=== PATIENT | female | born 1940 | race African-American/Black ===

== ENCOUNTER 2017-10-04 12:54 | Inpatient (IN) | payer MEDICARE, OTHER ==
[~2017-10-04] VITALS: Ht 157.5 cm; Wt 47.2 kg
--- OUTSIDE RECORDS SUMMARY | 2017-10-04 12:57 | XMS REPORT | Clinical Summary ---
Author Author [facility] Organization [facility] Address Unknown Phone Unavailable Care Team Providers Care Silk Washing Machine Operator Name Role Phone Kimo Ga MD PCP Allergies Active Allergy Reactions Severity Noted Date Comments No Known Drug Allergies Other (See Comments) 05/31/2015 Current Medications Prescription Sig. Disp. Refills Start End Date Status Date acetaminophen (TYLENOL) Take 500 mg by mouth Active 500 MG tablet every 6 (six) hours as needed for mild pain. diclofenac (VOLTAREN) 1 % Apply topically 4 (four) Active gel times a day. aspirin 325 MG tablet Take 325 mg by mouth Active daily. Dr. Daly rec 325 mg for CVA early 02/2013. nystatin (MYCOSTATIN) Apply topically 2 (two) 30 g 0 07/05/19 Active 100,000 unit/gram times a day. 18 19 ointmentIndications: 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 behavioral disturbance lisinopril-hydrochlorothi Take 1 tablet by mouth 90 tablet 3 07/05/19 07/05/19 Active azide daily. 18 19 (PRINZIDE,ZESTORETIC) 10-12.5 mg per tabletIndications: Hypertension simvastatin (ZOCOR) 20 MG Take 1 tablet (20 mg 90 tablet 1 03/22/20 07/05/19 Discontin tabletIndications: total) by mouth nightly. 16 18 ued Hyperlipidemia, unspecified hyperlipidemia type LISINOPRIL-HCTZ 10-12.5 Take 1 tablet by mouth 05/03/19 Discontin MG COMBO DOSE daily. Patient has been 18 ued taking one po daily for a period of time lisinopril-hydrochlorothi 10/30/19 11/11/19 Discontin azide 17 17 ued (PRINZIDE,ZESTORETIC) 10-12.5 mg per tablet lisinopril-hydrochlorothi Take 1 tablet by mouth 90 tablet 3 11/11/19 12/30/19 Discontin azide daily. 17 17 ued (PRINZIDE,ZESTORETIC) 10-12.5 mg per tabletIndications: Essential hypertension lisinopril-hydrochlorothi Take 1 tablet by mouth 90 tablet 3 03/15/20 07/05/19 Discontin azide daily Indications: 17 18 ued (PRINZIDE,ZESTORETIC) Hypertension. 10-12.5 mg per tabletIndications: Hypertension Active Problems Problem Noted Date Rapid weight loss 09/21/2017 Medicare annual wellness visit, subsequent 03/16/2017 Last Assessment & Plan: 76 y.o. female who was seen today for Medicare Wellness visit with complaints of worsening weight loss. Depression screening: Negative. No Follow-up needed. Fall risk screening:: No action taken. and unable to assess ADL's: independent for UE/LE dressing, toileting, brush teeth, and washface with no assistive devices. , wheelchair bound Tobacco use screening and follow up: reports that she has never smoked. She has never used smokeless tobacco. Not counseled. BMI Follow-Up/Intervention: Discussed the patient's BMI with her. Body mass index is 13.66 kg/m . The BMI follow up plan was under the ideal body weight Need for pneumococcal vaccine 10/16/2015 Osteoporosis 09/19/2015 Overview: 09/19/2015 bone density: Neck mean T -3.0, total mean T -2.4, L1-L4 T -2.4. Placed on alendronate, but stopped after a few months. Start alendronate 70 mg weekly; repeat bone density in one year. History of compression fracture of lumbar spine CKD (chronic kidney disease) stage 3, GFR 30-59 ml/min 05/31/2015 Hypertension 05/31/2015 Last Assessment & Plan: Controlled. Continue current regimen. Alzheimer's dementia Overview: diagnosed in 05/31/2014-Dr. Daly Last Assessment & Plan: Worsening dementia symptoms, including dysphagia. Will r/out anemia, infection or thyroid disorder Discussed benefits of transferring care to a home hospice care setting; referred for family to discuss admission Resolved Problems Problem Noted Date Resolved Date Contracture, right hand 07/04/2017 09/22/2017 Last Assessment & Plan: Physical therapy referral. Monitor progress, rtc 1 month for follow up Medicare annual wellness visit, subsequent 03/15/2017 03/16/2017 Encounter for other administrative examinations 12/29/2016 03/16/2017 Last Assessment & Plan: Pt's symptoms reported stable. Has adequate appetite, urinary output. No recent s/s of agitation or behavioral disturbances. Ok to assist adult daycare services. Home health services on order -follow up in clinic in 3 months. Abnormal thyroid function test 11/17/2015 03/15/2017 Weight gain 10/16/2015 03/15/2017 Need for shingles vaccine 10/16/2015 03/15/2017 Hypokalemia 10/01/2015 03/15/2017 Overview: Noted in ER on 10/01/2015 Vitamin D deficiency 07/29/2015 03/15/2017 Cerebrovascular accident 06/11/2015 03/15/2017 Overview: CVA/TIA late late Jan 2013; 02/26/2013 without residual; 02/26/2013 CT showed possible lacunar infarct at right basal ganglia. MRI - brain 02/27/2013 showed acute infarct right frontal coronal radiate/basal ganglia Arthritis of knee 06/11/2015 03/15/2017 Overview: Left knee Compression fracture of lumbar vertebra 05/31/2015 03/15/2017 Depression 05/31/2015 03/15/2017 HLD (hyperlipidemia) 05/31/2015 09/22/2017 Hyperthyroidism 05/31/2015 03/15/2017 Osteoarthritis of knee 05/31/2015 03/15/2017 Overview: Left knee pain Abnormal finding on thyroid function test 05/31/2015 03/15/2017 Urinary incontinence 05/31/2015 03/15/2017 Need for Tdap vaccination 03/15/2017 Encounters Date Type Specialty Care Team Description 09/21/2017 Office Visit Kimo Schwarz MD Medicare annual wellness visit, subsequent (Primary Dx); 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 behavioral disturbance; Rapid weight loss; CKD (chronic kidney disease) stage 3, GFR 30-59 ml/min 07/04/2017 Office Visit Kimo Schwarz MD 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 behavioral disturbance (Primary Dx); Essential hypertension; Contracture, right hand 05/03/2017 Office Visit Neurology Lianna Daly MD 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 behavioral disturbance (Primary Dx) 05/03/2017 Orders Only Danna Altamirano MA Alzheimer's dementia with behavioral disturbance, unspecified timing of dementia onset (Primary Dx) 04/06/2017 Telephone Danna Altamirano MA 03/15/2017 Office Visit Kimo Schwarz MD Medicare annual wellness visit, subsequent (Primary Dx); Alzheimer's dementia without behavioral disturbance, unspecified timing of dementia onset; Essential hypertension; Need for pneumococcal vaccine; Osteoporosis, unspecified osteoporosis type, unspecified pathological fracture presence; CKD (chronic kidney disease) stage 3, GFR 30-59 ml/min 12/29/2016 Office Visit Kimo Schwarz MD Flu vaccine need (Primary Dx); Encounter for other administrative examinations 11/10/2016 Office Visit Kimo Schwarz MD Essential hypertension (Primary Dx); Hyperlipidemia, unspecified hyperlipidemia type; Hyperthyroidism; CKD (chronic kidney disease) stage 3, GFR 30-59 ml/min; Alzheimer's dementia without behavioral disturbance, unspecified timing of dementia onset after 10/03/2016 Immunizations Name Dates Previously Given Next Due FLUZONE HIGH-DOSE PF 12/29/2016, 03/22/2016, 01/07/2015 Influenza, Unspecified 04/25/2013 Pneumococcal Conjugate 12/10/2014 13-Valent Pneumococcal 03/15/2017 Polysaccharide Family History Medical History Relation Name Comments Heart disease Father Hypertension Father Stroke Maternal Aunt Alzheimer's disease Mother Breast cancer Mother Colon cancer Sister Relation Name Status Comments Father Maternal Aunt Mother Sister Social History Tobacco Use Types Packs/Day Years Used Date Never Smoker Smokeless Tobacco: Never Used Alcohol Use Drinks/Week oz/Week Comments No Sex Assigned at Date Recorded Not on file Last Filed Vital Signs Vital Sign Reading Time Taken Blood Pressure 152/85 09/21/2017 1:04 PM CDT Pulse 77 09/21/2017 1:04 PM CDT Temperature 36.9 C (98.4 F) 09/21/2017 1:04 PM CDT Respiratory Rate 20 05/03/2017 2:00 PM MENTAL HEALTH THERAPIST Oxygen Saturation 100% 09/21/2017 1:04 PM CDT Inhaled Oxygen - - Concentration Weight 36.1 kg (79 lb 9.6 oz) 09/21/2017 1:04 PM CDT Height 162.6 cm (5' 4") 09/21/2017 1:04 PM CDT Body Mass Index 13.66 09/21/2017 1:04 PM CDT Plan of Treatment Date Type Specialty Care Team Description 11/01/2017 Office Visit Neurology Lianna Daly MD [address] [place] [id number] [phone] Health Maintenance Due Date Last Done Comments BREAST CANCER SCREENING 1992 COLON CANCER SCREENING 1992 SHINGRIX VACCINE (#1) 1992 ZOSTER VACCINE 2002 INFLUENZA VACCINE 11/23/2017 12/29/2016, 12/29/2016, 03/22/2016, Additional history exists PNEUMOCOCCAL-13 Completed 12/10/2014, 12/10/2014 PNEUMOCOCCAL Completed 03/15/2017, 03/15/2017 POLYSACCHARIDE VACCINE AGE 65 AND OVER Results * CBC with platelet and differential (09/21/2017 1:53 PM) Component Value Ref Range WBC 5.1 3.8 - 10.8 Thousand/uL RBC 4.25 3.80 - 5.10 Million/uL HGB 12.6 11.7 - 15.5 g/dL HCT 38.5 35.0 - 45.0 % MCV 90.6 80.0 - 100.0 fL MCH 29.6 27.0 - 33.0 pg MCHC 32.7 32.0 - 36.0 g/dL RDW 13.2 11.0 - 15.0 % Platelet count 204 140 - 400 Thousand/uL MPV 11.9 7.5 - 12.5 fL Neutrophils, absolute 1,749 1,500 - 7,800 cells/uL Lymphocytes, absolute 2,621 850 - 3,900 cells/uL Monocytes, absolute 479 200 - 950 cells/uL Eosinophils, absolute 219 15 - 500 cells/uL Basophils, absolute 31 0 - 200 cells/uL Neutrophils 34.3 % Lymphocytes 51.4 % Monocytes 9.4 % Eosinophils 4.3 % Basophils + RC 0.6 % Specimen Performing Laboratory [facility] * Thyroid stimulating hormone (09/21/2017 1:53 PM) Only the most recent of 2 results within the time period is included. Component Value Ref Range TSH <0.01 (L) 0.40 - 4.50 mIU/L Specimen Performing Laboratory [facility] * T4, free (09/21/2017 1:53 PM) Only the most recent of 2 results within the time period is included. Component Value Ref Range T4, free 2.2 (H) 0.8 - 1.8 ng/dL Specimen Performing Laboratory [facility] * Hemoglobin A1c (09/21/2017 1:53 PM) Component Value Ref Range Hemoglobin A1C 4.8 <5.7 % of total Hgb Comment: For the purpose of screening for the presence of diabetes: <5.7% Consistent with the absence of diabetes 5.7-6.4% Consistent with increased risk for diabetes (prediabetes) > or=6.5% Consistent with diabetes This assay result is consistent with a decreased risk of diabetes. Currently, no consensus exists regarding use of hemoglobin A1c for diagnosis of diabetes in children. According to [place] Diabetes Association (ADA) guidelines, hemoglobin A1c <7.0% represents optimal control in non- diabetic patients. Different metrics may apply to specific patient populations. Standards of Medical Care in Diabetes(ADA). Specimen Performing Laboratory [facility] * Comprehensive metabolic panel (09/21/2017 1:53 PM) Component Value Ref Range Glucose 100 (H) 65 - 99 mg/dL Comment: Fasting reference interval For someone without known diabetes, a glucose value between 100 and 125 mg/dL is consistent with prediabetes and should be confirmed with a follow-up test. BUN, whole blood 22 7 - 25 mg/dL Creatinine 0.66 0.60 - 0.93 mg/dL Comment: For patients >49 years of age, the reference limit for Creatinine is approximately 13% higher for people identified as -[place]gr[place]. EGFR Non-Afr. [place] 87 > OR=60 mL/min/1.73m2 EGFR 101 > OR=60 mL/min/1.73m2 BUN/creatinine ratio NOT APPLICABLE 6 - 22 (calc) Sodium 146 135 - 146 mmol/L Potassium 4.0 3.5 - 5.3 mmol/L Chloride 104 98 - 110 mmol/L CO2 29 20 - 31 mmol/L Calcium 9.6 8.6 - 10.4 mg/dL Protein 6.5 6.1 - 8.1 g/dL Albumin, S 3.8 3.6 - 5.1 g/dL Globulin, total 2.7 1.9 - 3.7 g/dL (calc) Albumin/globulin ratio 1.4 1.0 - 2.5 (calc) Total bilirubin 0.3 0.2 - 1.2 mg/dL Alkaline phosphatase 70 33 - 130 U/L AST 13 10 - 35 U/L ALT 9 6 - 29 U/L Specimen Performing Laboratory [facility] * CBC hemogram (11/10/2016 3:47 PM) Component Value Ref Range WBC 6.1 3.8 - 10.8 Thousand/uL RBC 4.36 3.80 - 5.10 Million/uL HGB 13.6 11.7 - 15.5 g/dL HCT 40.2 35.0 - 45.0 % MCV 92.2 80.0 - 100.0 fL MCH 31.2 27.0 - 33.0 pg MCHC 33.8 32.0 - 36.0 g/dL RDW 12.2 11.0 - 15.0 % Platelet count 265 140 - 400 Thousand/uL MPV 10.7 7.5 - 12.5 fL Specimen Performing Laboratory [facility] * Phosphorus level (11/10/2016 3:47 PM) Component Value Ref Range Phosphorus 3.2 2.1 - 4.3 mg/dL Specimen Performing Laboratory [facility] * Parathyroid hormone (11/10/2016 3:47 PM) Component Value Ref Range PTH 47 14 - 64 pg/mL Comment: Interpretive Guide Intact PTH Calcium ------- Normal Parathyroid Normal Normal Hypoparathyroidism Low or Low Normal Low Hyperparathyroidism Primary Normal or High High Secondary High Normal or Low Tertiary High High Non-Parathyroid Hypercalcemia Low or Low Normal High Specimen Performing Laboratory [facility] * Magnesium level (11/10/2016 3:47 PM) Component Value Ref Range Magnesium 1.9 1.5 - 2.5 mg/dL Specimen Performing Laboratory [facility] * Basic metabolic panel (11/10/2016 3:47 PM) Component Value Ref Range Glucose 96 65 - 99 mg/dL Comment: Fasting reference interval BUN, whole blood 22 7 - 25 mg/dL Creatinine 1.13 (H) 0.60 - 0.93 mg/dL Comment: For patients >49 years of age, the reference limit for Creatinine is approximately 13% higher for people identified as -[place]gr[place]. EGFR Non-Afr. [place] 48 (L) > OR=60 mL/min/1.73m2 EGFR 55 (L) > OR=60 mL/min/1.73m2 BUN/creatinine ratio 19 6 - 22 (calc) Sodium 139 135 - 146 mmol/L Potassium 3.9 3.5 - 5.3 mmol/L Chloride 105 98 - 110 mmol/L CO2 27 20 - 31 mmol/L Calcium 10.2 8.6 - 10.4 mg/dL Specimen Performing Laboratory [facility] after 10/03/2016 Insurance Payer Benefit Subscriber ID Type Phone Address Plan / Group [employer] xxxxxxxxx [facility] Home: [id number] [facility] [place] [id number]
[2017-10-04] MEDS ORDERED: ONDANSETRON HCL INJ 2 MG/ML VIAL IM STA (13:45)
[2017-10-04] MEDS ORDERED: MORPHINE SULFATE 2 MG/ML SYR IV STA (13:45)
[2017-10-04] MEDS ORDERED: ONDANSETRON HCL 4 MG ORAL DISINTEGRATING TAB ONE (14:03)
--- NOTE | 2017-10-04 18:05 | Diagnostic Imaging Report ---
PROCEDURE:CT OF LT HIP WO CONTRAST COMPARISON:None. INDICATIONS:FALL, LEFT HIP PAIN FINDINGS:Spiral images of the left hip were performed from the iliac crests to the proximal femur in soft tissue and bone windows. Coronal and sagittal reformatted images were performed. Exam limited by patient leg contracture. Generalized osteopenia. Acute, transverse, minimally displaced fracture of the left femoral neck (difficult to assess whether subcapital or transcervical), best seen on series 501, image 42. A 7 mm bone fragment is noted in the medial aspect of the fracture (series 4, image 42). No other acute fractures. Femoral head remains aligned with the acetabulum. No hyperdensities to suggest acute hematoma. Visualized bowel is unremarkable. No significant soft tissue swelling. . CONCLUSION: 1. Acute, transverse, minimally displaced fracture of the left femoral neck (difficult to assess whether subcapital or transcervical). 2. Generalized osteopenia. Bean Foster M.D. Dictated by: Bean Foster M.D. on 10/04/2017 at 18:08 Electronically approved by: Bean Foster M.D. on 10/04/2017 at 18:08
[2017-10-04] MEDS ORDERED: MORPHINE SULFATE 2 MG/ML SYR IM ONE (18:45)
[2017-10-04] MEDS ORDERED: ACETAMINOPHEN 1000 MG/100 ML IV STA (19:12)
[2017-10-04 19:39] LABS: ANION GAP 11.8 mmol/L (8-16); BLOOD UREA NITROGEN 12 mg/dL (7-26); BUN/CREATININE RATIO 16 (6-25); CALCIUM 9.9 mg/dL (8.4-10.2); CARBON DIOXIDE 26 mmol/L (22-29); CHLORIDE 99 mmol/L (98-107); CREATININE, SERUM 0.74 mg/dL (0.57-1.11); EST GLOMERULAR FILTRATION RATE > 60 ML/MIN (60-); GLUCOSE 118 mg/dL (74-118); HEMATOCRIT 37.9 % (34.2-44.1); LYMPHOCYTES % 2.5 % (18.0-39.1); MEAN CORPUSCULAR HEMOGLOBIN 30.7 pg (28-32); MEAN CORPUSCULAR HGB CONC 34.3 g/dL (31-35); MEAN CORPUSCULAR VOLUME 89.6 fL (81-99); NEUTROPHILS % 5.8 % (38.7-80.0); PLATELET COUNT 171 x10e3/uL (140-360); POTASSIUM 3.8 mmol/L (3.5-5.1); RED BLOOD COUNT 4.23 x10e6/uL (3.6-5.1); RED CELL DISTRIBUTION WIDTH 12.7 % (11.7-14.4); SODIUM 133 mmol/L (136-145)
--- OUTSIDE RECORDS SUMMARY | 2017-10-04 19:39 | XMS REPORT | Clinical Summary ---
Author Author [facility] Organization [facility] Address Unknown Phone Unavailable Care Team Providers Care Radiator Cleaner Name Role Phone Kimo Ga MD PCP [...] CDT Respiratory Rate 20 05/03/2017 2:00 PM WAXER Oxygen Saturation 100% 09/21/2017 1:04 PM CDT Inhaled Oxygen - - Concentration Weight 36.1 kg (79 lb 9.6 oz) 09/21/2017 1:04 PM CDT Height 162.6 cm (5' 4") 09/21/2017 1:04 PM CDT Body Mass Index 13.66 09/21/2017 1:04 PM CDT Plan of Treatment Date Type Specialty Care Team Description 11/01/2017 Office Visit Neurology Lianna Daly MD [address] [place] [id number] [phone] Health Maintenance Due Date Last Done Comments [...] diagnosis of diabetes in children. According to [place] Diabetes Association (ADA) guidelines, hemoglobin A1c <7.0% [...] approximately 13% higher for people identified as -Austrian. EGFR Non-Afr. Austrian 87 > OR=60 mL/min/1.73m2 EGFR 101 > [...] approximately 13% higher for people identified as -Austrian. EGFR Non-Afr. Austrian 48 (L) > OR=60 mL/min/1.73m2 EGFR 55 [...] Address Plan / Group [employer] xxxxxxxxx [facility] Home: [address] [facility] [place] [address]
--- OUTSIDE RECORDS SUMMARY | 2017-10-04 19:39 | XMS REPORT ---
Author Author [facility] Address Unknown Phone Unavailable Care Team Providers Care Ground Nuclear Weapons Assembly Officer Name Role Phone ERICA LECHUGA Unavailable Unavailable Problems This patient has no known problems. Allergies, Adverse Reactions, Alerts This patient has no known allergies or adverse reactions. Medications This patient has no known medications. Results Test Description Test Time Test Comments Text Results Atomic Results Result Comments CT HIP LEFT WO 2017-10-04 18:08:00 [place] [address] Patient Name: DEVYN HARGROVE MR #: [id number] : 1940 Age/Sex: 76/F Req #: [id number] Adm Physician: Ordered by: ERICA LECHUGA MD Report #: [id number] Location: ER Room/Bed: Procedure: CT/CT HIP LEFT WO Exam Date: 10/04/17 Exam Time: 1515 REPORT STATUS: Signed PROCEDURE: CT OF LT HIP WO CONTRAST COMPARISON: None. INDICATIONS: FALL, LEFT HIP PAIN FINDINGS: Spiral images of the left hip were performed from the iliac crests to the proximal femur in soft tissue and bone windows. Coronal and sagittal reformatted images were performed. Exam limited by patient leg contracture. Generalized osteopenia. Acute, transverse, minimally displaced fracture of the left femoral neck (difficult to assess whether subcapital or transcervical), best seen on series 501, image 42. A 7 mm bone fragment is noted in the medial aspect of the fracture (series 4 , image 42). No other acute fractures. Femoral head remains aligned with the acetabulum. No hyperdensities to suggest acute hematoma. Visualized bowel is unremarkable. No significant soft tissue swelling. . CONCLUSION: 1. Acute, transverse, minimally displaced fracture of the left femoral neck (difficult to assess whether subcapital or transcervical). 2. Generalized osteopenia. Josiah Sterling M.D. Dictated by: Josiah Sterling M.D. on 10/04/2017 at 18:08 Electronically approved by : Josiah Sterling M.D. on 10/04/2017 at 18:08 Dictated By: JOSIAH STERLING MD 07 Transcribed By: SHANTI on 10/04/171807 COPY TO: ERICA LECHUGA MD
[2017-10-04 19:40] LABS: BASOPHILS # (AUTO) 0.1 (0.0-0.1); EOSINOPHILS # (AUTO) 0.2 (0.0-0.4); LYMPHOCYTES # (AUTO) 25.7 (1.0-3.2); MONOCYTES # (AUTO) 14.4 (0.2-0.8); MONOCYTES % 1.4 % (4.4-11.3); NEUTROPHILS # (AUTO) 59.3 (2.1-6.9)
[2017-10-04] MEDS ORDERED: ONDANSETRON HCL INJ 2 MG/ML VIAL IV PRN (19:45)
[2017-10-04] MEDS: SODIUM CHLORIDE 0.9% 1000ML 1,000 ML IV SCH (19:51)
[2017-10-04] MEDS ORDERED: CEFTRIAXONE SOD 1 GM VIAL IV SCH (20:00)
[2017-10-04 21:24] LABS: CLARITY,URINE CLEAR (CLEAR); COLOR,URINE YELLOW (YELLOW)
[2017-10-04 21:25] LABS: BILIRUBIN,URINE NEGATIVE (NEGATIVE); KETONES,URINE NEGATIVE (NEGATIVE); LEUKOCYTE ESTERASE ,URINE NEGATIVE (NEGATIVE); NITRITE,URINE NEGATIVE (NEGATIVE); PROTEIN,URINE DIPSTICK NEGATIVE (NEGATIVE); URINE UROBILINOGEN 0.2 mg/dL (0.2 - 1)
[2017-10-04] MEDS ORDERED: CEFTRIAXONE SOD 1 GM VIAL IV ONE (21:30)
--- NOTE | 2017-10-04 21:30 | Diagnostic Imaging Report ---
History:Fall Comparison studies:None Technique: Axial images were obtained from the skull base to the vertex. Coronal and sagittal images reconstructed from the axial data. Intravenous contrast: None Findings: Scalp/skull: No abnormalities. Extra-axial spaces: No masses. No fluid collections. Brain sulci: Moderately prominent. Ventricles: Moderate compensatory dilatation. No hydrocephalus. Parenchyma: Old lacunar insult is centered in the right frontal capsular region (putamen and adjacent caudate). No masses, hemorrhage, acute or chronic cortical vascular insults. Sellar/suprasellar region: No abnormalities. Craniocervical junction: Patent foramen magnum. No Chiari one malformation. Incidental findings: Atherosclerotic calcifications in the carotid siphons . Impression: No acute abnormalities. Chronic findings: Moderate generalized volume loss. Focal right striatocapsular insult Signed by: Dr. Klever Joel M.D. on 10/04/2017 9:27 PM
[2017-10-04 21:34] LABS: BACTERIA,URINE FEW /HPF; EPITHELIAL CELLS,URINE FEW /LPF; MUCUS,URINE MANY (RARE); WBC,URINE (MAN) 0-5 /HPF (0-5)
[2017-10-04 21:54] VITALS: BP 176/78
[2017-10-04] MEDS ORDERED: LORAZEPAM0.5 MG PO (22:29)
[2017-10-04] MEDS ORDERED: COLACE100 MG PO (22:29)
[2017-10-04] MEDS ORDERED: ASPIRIN325 MG PO (22:29)
[2017-10-04] MEDS ORDERED: LISINOPRIL-HCT1 EAC2 PO (22:29)
[2017-10-04] MEDS ORDERED: HYDRALAZINE HCL 20 MG/ML VIAL IV PRN (22:45)
[2017-10-04] MEDS ORDERED: METOPROLOL TARTRATE 25 MG TAB PO SCH (22:45)
[2017-10-04] MEDS: MORPHINE SULFATE 2 MG/ML SYR IV PRN (23:00)
[2017-10-04] MEDS ORDERED: METOPROLOL TARTRATE INJ 1 MG/ML VIAL IV ONE (23:30)
[2017-10-05] VITALS (9 sets, daily range): BP systolic 127–198; BP diastolic 75–104
[2017-10-05] MEDS ORDERED: METOPROLOL TARTRATE 25 MG TAB PO SCH
[2017-10-05 03:46] LABS: BASOPHILS % 0.1 % (0.0-1.0); EOSINOPHILS % 0.3 % (0.0-6.0); HEMATOCRIT 35.4 % (34.2-44.1); HEMOGLOBIN 12.5 g/dL (12.0-16.0); LYMPHOCYTES % 21.4 % (18.0-39.1); MEAN CORPUSCULAR HEMOGLOBIN 31.1 pg (28-32); MEAN CORPUSCULAR HGB CONC 35.3 g/dL (31-35); MEAN CORPUSCULAR VOLUME 88.1 fL (81-99); MONOCYTES # (AUTO) 1.5 (0.2-0.8); MONOCYTES % 16.4 % (4.4-11.3); NEUTROPHILS # (AUTO) 5.8 (2.1-6.9); NEUTROPHILS % 61.6 % (38.7-80.0); PLATELET COUNT 171 x10e3/uL (140-360); RED BLOOD COUNT 4.02 x10e6/uL (3.6-5.1); RED CELL DISTRIBUTION WIDTH 12.6 % (11.7-14.4)
[2017-10-05 04:04] LABS: ANION GAP 12.9 mmol/L (8-16); BLOOD UREA NITROGEN 12 mg/dL (7-26); BUN/CREATININE RATIO 16 (6-25); CALCIUM 9.5 mg/dL (8.4-10.2); CARBON DIOXIDE 23 mmol/L (22-29); CHLORIDE 102 mmol/L (98-107); CREATININE, SERUM 0.76 mg/dL (0.57-1.11); EST GLOMERULAR FILTRATION RATE > 60 ML/MIN (60-); GLUCOSE 110 mg/dL (74-118); MAGNESIUM 1.3 MG/DL (1.3-2.1); POTASSIUM 3.9 mmol/L (3.5-5.1); SODIUM 134 mmol/L (136-145)
[2017-10-05 04:48] LABS: LYMPHOCYTES % (MANUAL) 19 % (19-48); MONOCYTES % (MANUAL) 11 % (3.4-9.0); NEUTROPHILS % (MANUAL) 65 % (40-74); PLATELET ESTIMATE ADEQUATE; PLATELET MORPHOLOGY COMMENT NORMAL; RBC MORPHOLOGY COMMENT NORMAL
[2017-10-05] MEDS ORDERED: LEVSIN0.125 MG (04:51)
[2017-10-05] MEDS ORDERED: BISCOLAX10 MG RC (04:51)
[2017-10-05] MEDS ORDERED: METOPROLOL TARTRATE INJ 1 MG/ML VIAL IV SCH (06:00)
[2017-10-05] MEDS ORDERED: POLYETHYLENE GLYCOL 3350 17 GM PACK PO SCH (09:00)
[2017-10-05] MEDS ORDERED: DOCUSATE SODIUM 100 MG CAP PO SCH (09:00)
[2017-10-05] MEDS ORDERED: POLYETHYLENE GLYCOL 3350 17 GM PACK PO PRN (09:00)
[2017-10-05] MEDS: SODIUM CHLORIDE 0.9% 1000ML 1,000 ML IV SCH ×2 (09:38→22:11)
[2017-10-05] MEDS: FAMOTIDINE 20 MG TAB PO SCH ×2 (09:38→16:36)
[2017-10-05] MEDS: DOCUSATE SODIUM 100 MG CAP PO SCH ×2 (09:50→16:36)
[2017-10-05] MEDS: LISINOPRIL 10 MG TAB PO SCH (09:51)
--- NOTE | 2017-10-05 13:18 | Diagnostic Imaging Report ---
PROCEDURE:HIP LEFT 2-3 VW (+/- PELVIS) TECHNIQUE:AP and frog-leg lateral views left hip; AP pelvis INDICATION:Left hip fracture COMPARISON:None. FINDINGS: See conclusion. CONCLUSION: 1. Displaced subcapital fracture of the left femoral neck. The femur is displaced cranially and posteriorly. The femoral head is within the acetabulum. 2. The pelvic ring is grossly intact. Dictated by: Gee Bhardwaj M.D. on 10/05/2017 at 13:21 Electronically approved by: Gee Bhardwaj M.D. on 10/05/2017 at 13:21
[2017-10-05] MEDS: METOPROLOL TARTRATE 25 MG TAB PO SCH ×2 (13:22→16:36)
[2017-10-05] MEDS ORDERED: SODIUM CHLORIDE 0.9% 250ML 250 ML IV ONE (14:30)
[2017-10-05] MEDS: MORPHINE SULFATE 2 MG/ML SYR IV PRN ×2 (15:00→21:00)
[2017-10-06] VITALS (8 sets, daily range): BP systolic 121–154; BP diastolic 61–101
[2017-10-06] MEDS: MORPHINE SULFATE 2 MG/ML SYR IV PRN ×5 (03:24→23:03)
[2017-10-06] MEDS ORDERED: CEFAZOLIN SOD 2 GM/D5W 50ML 50 ML IV SCH (06:00)
[2017-10-06] MEDS ORDERED: CEFAZOLIN SOD 2 GM in WATER STERILE 10ML VIAL 10 ML IV ONE (06:00)
[2017-10-06] MEDS: METOPROLOL TARTRATE 25 MG TAB PO SCH ×4 (06:00→17:38)
[2017-10-06 07:12] LABS: BASOPHILS % 0.2 % (0.0-1.0); EOSINOPHILS % 0.1 % (0.0-6.0); HEMATOCRIT 35.6 % (34.2-44.1); HEMOGLOBIN 12.1 g/dL (12.0-16.0); LYMPHOCYTES # (AUTO) 1.6 (1.0-3.2); LYMPHOCYTES % 16.1 % (18.0-39.1); MEAN CORPUSCULAR HEMOGLOBIN 30.3 pg (28-32); MEAN CORPUSCULAR VOLUME 89.2 fL (81-99); MONOCYTES # (AUTO) 1.7 (0.2-0.8); NEUTROPHILS # (AUTO) 6.5 (2.1-6.9); NEUTROPHILS % 66.4 % (38.7-80.0); PLATELET COUNT 146 x10e3/uL (140-360); RED BLOOD COUNT 3.99 x10e6/uL (3.6-5.1); RED CELL DISTRIBUTION WIDTH 12.5 % (11.7-14.4)
[2017-10-06 07:27] LABS: ANION GAP 11.8 mmol/L (8-16); BLOOD UREA NITROGEN 11 mg/dL (7-26); BUN/CREATININE RATIO 16 (6-25); CALCIUM 9.4 mg/dL (8.4-10.2); CARBON DIOXIDE 25 mmol/L (22-29); CHLORIDE 108 mmol/L (98-107); CREATININE, SERUM 0.68 mg/dL (0.57-1.11); EST GLOMERULAR FILTRATION RATE > 60 ML/MIN (60-); GLUCOSE 102 mg/dL (74-118); MAGNESIUM 1.3 MG/DL (1.3-2.1); POTASSIUM 3.8 mmol/L (3.5-5.1); SODIUM 141 mmol/L (136-145)
[2017-10-06] MEDS ORDERED: METOPROLOL TARTRATE INJ 1 MG/ML VIAL IV NR (08:00)
[2017-10-06] MEDS ORDERED: BACITRACIN 50,000 UNIT VIAL ONE (08:01)
--- NOTE | 2017-10-06 09:02 | Diagnostic Imaging Report ---
PROCEDURE:CHEST SINGLE (PORTABLE) TECHNIQUE:Portable AP chest INDICATION:Preoperative evaluation for hip surgery COMPARISON:None. FINDINGS: The lungs are clear and symmetrically inflated. No pleural effusions. Normal heart size. Tortuous thoracic aorta. Normal central vasculature. Intact skeleton. CONCLUSION: No acute abnormality. Dictated by: Gee Bhardwaj M.D. on 10/06/2017 at 9:05 Electronically approved by: Gee Bhardwaj M.D. on 10/06/2017 at 9:05
[2017-10-06 09:24] LABS: INR 1.24; PROTHROMBIN TIME 14.7 seconds (11.9-14.5)
--- NOTE | 2017-10-06 10:08 | Consultation ---
DATE OF CONSULTATION: October 06, 2017 CARDIOLOGY CONSULTATION REASON FOR CONSULTATION: Cardiac surgical clearance. HPI: This is a frail and thin 76-year-old female that presented status post fall. According to the daughter at the bedside, she has no cardiac history, but history of only high blood pressure. She lives in a skilled nursing, and she moves around on her own. She also stated she has a history of end-stage dementia. Was on Hospice, which she revoked due to the fall, and wanted her to have hip surgery. Her heart rate had been running in the 120s and 130s. Cardiology was consulted for clearance. She has dementia and not able to follow commands or verbalize any need. She has her left leg on traction and pending surgery this afternoon. PAST MEDICAL HISTORY: Osteopenia, hypertension, dementia, hyperlipidemia, CVA, IBS, anxiety, and malnutrition. PAST SURGICAL HISTORY: Hysterectomy. FAMILY HISTORY: Positive for cancer. SOCIAL HISTORY: No smoking. No drinking. She lives in a skilled nursing. MEDICATIONS: See med list. ALLERGIES: SHE IS NOT ALLERGIC TO ANY MEDICATION. REVIEW OF SYSTEMS: Negative except those mentioned above. She is status post fall. PHYSICAL EXAMINATION VITAL SIGNS: Temperature 97, heart rate 130, blood pressure 121/93, respirations 18, oxygen saturation 97% on room. GENERAL: She is awake but confused and not able to follow any commands. HEENT: Mucous membrane dry. NECK: Supple. LUNGS: Bilateral clear to auscultation. CARDIOVASCULAR: S1 and S2 present. ABDOMEN: Soft. NEUROLOGICAL: She is confused and demented. EXTREMITIES: With no edema. Left leg on traction. LABS: Sodium 141, potassium 3.8, chloride 108, CO2 25, BUN 11, creatinine 0.68, glucose 102. White blood cells 9.82, hemoglobin 12.1, hematocrit 35.6, and platelets 146,000. IMPRESSION 1. Status post fall. 2. Left hip fracture. 3. Tachycardia. 4. History of hypertension. 5. Dementia. 6. History of cerebrovascular accident. ASSESSMENT AND PLAN 1. Will go ahead and get an echocardiogram to assess the LV and valve function. 2. Will get a 12-lead EKG. 3. Will check magnesium and TSH. 4. Will continue IV beta blockers since she is n.p.o. Further cardiac workup pending clinical course. Thank you for this consultation. DICTATED BY VALERIE AMAYA NP Job#: [id number] RI
[2017-10-06 10:34] LABS: LYMPHOCYTES % (MANUAL) 29 % (19-48); MONOCYTES % (MANUAL) 17 % (3.4-9.0); NEUTROPHILS % (MANUAL) 53 % (40-74)
[2017-10-06 10:35] LABS: PLATELET ESTIMATE SLIGHTLY DECREASED; PLATELET MORPHOLOGY COMMENT NORMAL; RBC MORPHOLOGY COMMENT NORMAL
[2017-10-06] MEDS: SODIUM CHLORIDE 0.9% 1000ML 1,000 ML IV SCH ×3 (11:31→17:40)
[2017-10-06] MEDS: DOCUSATE SODIUM 100 MG CAP PO SCH ×2 (12:33→17:37)
[2017-10-06] MEDS: FAMOTIDINE 20 MG TAB PO SCH ×2 (12:33→17:37)
[2017-10-06] MEDS: LISINOPRIL 10 MG TAB PO SCH (12:34)
[2017-10-06] MEDS: SENNOSIDES 8.6 MG TAB PO SCH (12:34)
[2017-10-06] MEDS: ACETAMINOPHEN 325 MG TAB PO PRN (13:26)
[2017-10-07] VITALS (7 sets, daily range): BP systolic 131–200; BP diastolic 72–104
[2017-10-07] MEDS: METOPROLOL TARTRATE 25 MG TAB PO SCH ×4 (00:41→17:05)
[2017-10-07] MEDS: LORAZEPAM 0.5 MG TAB PO PRN ×3 (00:41→22:25)
[2017-10-07] MEDS: SODIUM CHLORIDE 0.9% 1000ML 1,000 ML IV SCH ×2 (00:52→14:11)
[2017-10-07] MEDS: MORPHINE SULFATE 2 MG/ML SYR IV PRN ×4 (05:25→21:26)
[2017-10-07 06:16] LABS: BASOPHILS % 0.1 % (0.0-1.0); EOSINOPHILS # (AUTO) 0.1 (0.0-0.4); EOSINOPHILS % 1.7 % (0.0-6.0); HEMATOCRIT 33.4 % (34.2-44.1); HEMOGLOBIN 11.5 g/dL (12.0-16.0); LYMPHOCYTES # (AUTO) 2.1 (1.0-3.2); MEAN CORPUSCULAR HEMOGLOBIN 31.3 pg (28-32); MEAN CORPUSCULAR HGB CONC 34.4 g/dL (31-35); MEAN CORPUSCULAR VOLUME 90.8 fL (81-99); MONOCYTES # (AUTO) 1.3 (0.2-0.8); NEUTROPHILS # (AUTO) 4.7 (2.1-6.9); NEUTROPHILS % 57.1 % (38.7-80.0); PLATELET COUNT 165 x10e3/uL (140-360); RED BLOOD COUNT 3.68 x10e6/uL (3.6-5.1); RED CELL DISTRIBUTION WIDTH 12.6 % (11.7-14.4)
[2017-10-07 06:32] LABS: ANION GAP 10.8 mmol/L (8-16); BLOOD UREA NITROGEN 11 mg/dL (7-26); BUN/CREATININE RATIO 17 (6-25); CALCIUM 9.2 mg/dL (8.4-10.2); CARBON DIOXIDE 25 mmol/L (22-29); CHLORIDE 108 mmol/L (98-107); CREATININE, SERUM 0.64 mg/dL (0.57-1.11); EST GLOMERULAR FILTRATION RATE > 60 ML/MIN (60-); GLUCOSE 107 mg/dL (74-118); MAGNESIUM 1.4 MG/DL (1.3-2.1); POTASSIUM 3.8 mmol/L (3.5-5.1); SODIUM 140 mmol/L (136-145)
[2017-10-07 08:50] LABS: THYROID STIMULATING HORMONE 0.001 uIU/mL (0.350-4.940)
[2017-10-07] MEDS: DOCUSATE SODIUM 100 MG CAP PO SCH ×2 (09:00→17:00)
[2017-10-07] MEDS: FAMOTIDINE 20 MG TAB PO SCH ×2 (09:23→17:04)
[2017-10-07] MEDS: SENNOSIDES 8.6 MG TAB PO SCH (09:24)
[2017-10-07] MEDS: LISINOPRIL 10 MG TAB PO SCH (09:24)
--- NOTE | 2017-10-07 14:25 | Consultation ---
DATE OF CONSULTATION: ENDOCRINE CONSULTATION This is a patient of Dr. Harp and Dr. Wu. Thank you very much for referring this patient. This is a 76-year-old black female who is referred to me for evaluation of rule out hyperthyroidism. According to the daughter, she was told at one time she has hyperthyroidism, but she is not on any routine medications. She does have a history of significant weight loss and palpitations. The patient at this time fell down and sustained a fracture of the left hip. Her other medical problems include history of hypertension and dementia, and she is status post CVA. PHYSICAL EXAMINATION GENERAL: Today the patient is awake but slightly confused. VITALS: Her heart rate is around 70. Blood pressure 160/80 mmHg. HEENT: Essentially unremarkable. Thyroid is barely palpable. CHEST: Bilateral vesicular breathing. She has mild bronchospasm. Cardiac 1st and 2nd heart sounds. There is no 3rd or 4th heart sound. Ejection systolic murmur, grade 2/6. MUSCULOSKELETAL: Patient has a sustained a fracture of the left hip. LABS: Her lab evaluation so far has revealed her T3 resin uptake is elevated, but her T4 is within the range and TSH is low. CLINICAL IMPRESSION 1. Rule out hyperthyroidism. 2. Hypertension. 3. Status post fall with fracture of the left hip for surgery. 4. Status post cerebrovascular accident. 5. Dementia. The plan at this time is to do a free T3, free T4, TSH, antiperoxidase antibody and continue the beta blockers for now. Thanks for referring this patient. I will be following this patient with you. Job#: [id number]
[2017-10-08 00:50] VITALS: BP 119/88
[2017-10-08 01:36] VITALS: BP 119/88
[2017-10-08] MEDS: SODIUM CHLORIDE 0.9% 1000ML 1,000 ML IV SCH ×5 (02:06→22:28)
[2017-10-08] MEDS: MORPHINE SULFATE 2 MG/ML SYR IV PRN ×3 (02:12→12:35)
[2017-10-08] MEDS: METOPROLOL TARTRATE 25 MG TAB PO SCH ×4 (06:00→17:18)
[2017-10-08 06:16] VITALS: BP 137/90
[2017-10-08 06:20] LABS: BASOPHILS % 0.2 % (0.0-1.0); EOSINOPHILS # (AUTO) 0.2 (0.0-0.4); EOSINOPHILS % 2.2 % (0.0-6.0); HEMATOCRIT 31.5 % (34.2-44.1); HEMOGLOBIN 10.9 g/dL (12.0-16.0); LYMPHOCYTES # (AUTO) 2.8 (1.0-3.2); LYMPHOCYTES % 31.9 % (18.0-39.1); MEAN CORPUSCULAR HEMOGLOBIN 30.5 pg (28-32); MEAN CORPUSCULAR HGB CONC 34.6 g/dL (31-35); MEAN CORPUSCULAR VOLUME 88.2 fL (81-99); MONOCYTES # (AUTO) 1.5 (0.2-0.8); MONOCYTES % 16.9 % (4.4-11.3); NEUTROPHILS # (AUTO) 4.3 (2.1-6.9); NEUTROPHILS % 48.6 % (38.7-80.0); PLATELET COUNT 198 x10e3/uL (140-360); RED BLOOD COUNT 3.57 x10e6/uL (3.6-5.1); RED CELL DISTRIBUTION WIDTH 12.1 % (11.7-14.4)
[2017-10-08] MEDS ORDERED: BACITRACIN 50,000 UNIT VIAL ONE (06:32)
[2017-10-08] MEDS: METOPROLOL TARTRATE INJ 1 MG/ML VIAL IV PRN (06:33)
[2017-10-08 06:40] LABS: BLOOD UREA NITROGEN 7 mg/dL (7-26); BUN/CREATININE RATIO 11 (6-25); CARBON DIOXIDE 26 mmol/L (22-29); CHLORIDE 107 mmol/L (98-107); CREATININE, SERUM 0.63 mg/dL (0.57-1.11); EST GLOMERULAR FILTRATION RATE > 60 ML/MIN (60-); GLUCOSE 115 mg/dL (74-118); MAGNESIUM 1.5 MG/DL (1.3-2.1); SODIUM 141 mmol/L (136-145)
[2017-10-08] MEDS: FAMOTIDINE 20 MG TAB PO SCH ×2 (07:30→17:17)
[2017-10-08] MEDS: DOCUSATE SODIUM 100 MG CAP PO SCH ×2 (09:00→17:17)
[2017-10-08] MEDS: SENNOSIDES 8.6 MG TAB PO SCH (09:00)
[2017-10-08] MEDS: LISINOPRIL 10 MG TAB PO SCH (09:00)
--- NOTE | 2017-10-08 09:04 | Diagnostic Imaging Report ---
HIP LEFT ONE VIEW / OR - 1 views HISTORY: Pain. Acute left hip fracture. Left hip surgery. COMPARISON: None available. FINDINGS: Intraoperative film of left total hip arthroplasty. Good alignment of the acetabular component. IMPRESSION: Intraoperative film left total hip arthroplasty. Signed by: Dr. Javier Apple M.D. on 10/08/2017 9:01 AM
[2017-10-08] MEDS ORDERED: ONDANSETRON HCL INJ 2 MG/ML VIAL IV PRN (10:00)
--- NOTE | 2017-10-08 10:45 | Diagnostic Imaging Report ---
PELVIS AP 1-2 VIEWS - 1 views HISTORY: Pain. Acute left hip fracture with surgery COMPARISON: None available. FINDINGS: New postoperative changes of left hip arthroplasty with additional metallic plate fixation along the greater trochanter. Overlying skin jorge l, subcutaneous edema and emphysema. IMPRESSION: New left postoperative changes of left total hip arthroplasty. Signed by: Dr. Javier Apple M.D. on 10/08/2017 10:41 AM
[2017-10-08 12:02] VITALS: BP 131/76
[2017-10-08] MEDS ORDERED: CEFAZOLIN SOD 1 GM/D5W 50ML 50 ML IV SCH (14:00)
[2017-10-08] MEDS: LORAZEPAM 0.5 MG TAB PO PRN ×2 (14:48→21:50)
--- NOTE | 2017-10-08 15:03 | Operative Report ---
DATE OF PROCEDURE: October 08, 2017 PREOPERATIVE DIAGNOSIS: Displaced left femoral neck fracture. POSTOPERATIVE DIAGNOSES 1. Displaced left femoral neck fracture. 2. Left greater trochanteric fracture. OPERATION/PROCEDURE PERFORMED: The patient underwent a left cemented hemiarthroplasty and open reduction internal fixation of the left greater trochanteric fracture. NON DESTRUCTIVE EVALUATION SPECIALIST: None. ANESTHESIA: General endotracheal intubation anesthesia. IV FLUIDS: Per the anesthesia record. BLOOD LOSS: Approximately 150 mL. BRIEF DESCRIPTION OF THE PATIENT'S OPERATIVE PROCEDURE: Ms. Gallagher was taken to the operating room and placed in the supine position on the operating table. Following induction general anesthesia, as well as endotracheal intubation, the patient was turned to a lateral position with the left side up. She was held in place with well-padded hip positioners. Her bilateral lower extremities were also well-padded at this time. An axillary roll was placed on the right chest wall. The patient's thigh and flank were then prepped and draped in the standard surgical fashion. The case was begun by creating a curvilinear incision centered over the greater trochanter. This incision was carried through the skin and subcutaneous tissues to the level of the tensor fascia kimberlee and gluteus qian fascia. The leg was placed in abduction, and the tensor fascia kimberlee and gluteus qian fascia were then divided in line with the skin incision. A Charnley retractor was placed in the wound. The sciatic nerve was identified and protected throughout the remainder of the case. The short external rotators were elevated from the posterolateral aspect of the femur and reflected posteriorly over the sciatic nerve to further protect the nerve. This revealed a displaced femoral neck fracture. A femoral neck cut was performed. The head was then removed from the acetabulum and measured on the back table. Sequential broaching was undertaken until an appropriate size broach was placed within the proximal femur. This demonstrated a displaced femoral neck fracture. Manipulation of the hip also demonstrated a fracture of the superior aspect of the greater trochanter. A femoral neck cut was performed. The head was then removed from the acetabulum. Sequential broaching was undertaken. Once an appropriate size stem was fixed within the femur, a trial neck and head were then affixed to the broach, and the hip was reduced and placed through motion. Intraoperative x-rays confirmed acceptable alignment of the patient's stem. The decision was made to provide the patient a neck extension to equalize the limb lengths. The trial components were removed. The femoral canal was prepared for cementation. Cement was then injected and pressurized. The stem was then inserted taking care to provide the patient appropriate amount of anteversion. Once the cement had cured, attention was turned to the greater trochanteric fracture. A greater trochanteric claw was chosen and affixed to the lateral border of the femur. The claw was driven into the greater trochanter providing compression across the patient's injury site. A cable was passed around the proximal femur and tensioned appropriately. The hip was placed through a motion, and the greater trochanteric injury was found to remain stable. The head and neck extension was affixed to the stem, and the hip was reduced and placed through motion and also found to be stable. The wounds were copiously irrigated. The capsule was repaired. The remaining soft tissues were closed in a multilayer fashion. Sterile dressings were applied. The patient was provided a hip abduction pillow, awakened and taken to the postanesthesia care unit in stable condition. Job#: [id number] DILIA WASHINGTON
[2017-10-08] MEDS: CEFAZOLIN SOD 1 GM VIAL IV SCH ×2 (15:08→21:26)
[2017-10-08] MEDS ORDERED: DEXAMETHASONE SOD PHOS INJ 4 MG/ML VIAL ONE (17:33)
[2017-10-08] MEDS ORDERED: ONDANSETRON HCL INJ 2 MG/ML VIAL ONE (17:33)
[2017-10-08] MEDS ORDERED: SEVOFLURANE INHAL SOLN 250 ML PEN BTL ONE (17:33)
[2017-10-08] MEDS ORDERED: PROPOFOL IV EMULSION 10 MG/ML 20 ML VIAL ONE (17:33)
[2017-10-08] MEDS ORDERED: ROCURONIUM BROMIDE 10 MG/ML 5ML VIAL ONE (17:33)
[2017-10-08] MEDS ORDERED: MIDAZOLAM HCL 2 MG/2 ML VIAL ONE (17:50)
[2017-10-08] MEDS ORDERED: FENTANYL CITRATE/PF 100MCG/2 ML INJ ONE (17:50)
[2017-10-08] MEDS ORDERED: KETAMINE HCL INJ 50 MG/ML 10 ML VIAL ONE (17:50)
[2017-10-08 20:00] VITALS: BP 143/64
[2017-10-08] MEDS: HYDROCODONE/APAP 10MG-325MG TAB PO PRN (21:26)
[2017-10-09] VITALS: BP 130/70
[2017-10-09 04:00] VITALS: BP 162/67
[2017-10-09] MEDS: ACETAMINOPHEN 325 MG TAB PO PRN ×2 (05:10→21:09)
[2017-10-09] MEDS: METOPROLOL TARTRATE 25 MG TAB PO SCH ×4 (05:18→17:57)
[2017-10-09] MEDS: METOPROLOL TARTRATE INJ 1 MG/ML VIAL IV PRN ×2 (05:18→21:16)
[2017-10-09] MEDS: CEFAZOLIN SOD 1 GM VIAL IV SCH (05:58)
[2017-10-09] MEDS: SODIUM CHLORIDE 0.9% 1000ML 1,000 ML IV SCH (06:16)
[2017-10-09 06:55] LABS: BASOPHILS % 0.1 % (0.0-1.0); EOSINOPHILS % 0.1 % (0.0-6.0); HEMATOCRIT 26.2 % (34.2-44.1); HEMOGLOBIN 9.1 g/dL (12.0-16.0); LYMPHOCYTES # (AUTO) 1.6 (1.0-3.2); LYMPHOCYTES % 21.6 % (18.0-39.1); MEAN CORPUSCULAR HEMOGLOBIN 31.1 pg (28-32); MEAN CORPUSCULAR HGB CONC 34.7 g/dL (31-35); MEAN CORPUSCULAR VOLUME 89.4 fL (81-99); MONOCYTES # (AUTO) 1.4 (0.2-0.8); MONOCYTES % 17.9 % (4.4-11.3); NEUTROPHILS # (AUTO) 4.5 (2.1-6.9); PLATELET COUNT 199 x10e3/uL (140-360); RED BLOOD COUNT 2.93 x10e6/uL (3.6-5.1)
[2017-10-09 07:25] LABS: ANION GAP 10.6 mmol/L (8-16); BLOOD UREA NITROGEN 10 mg/dL (7-26); BUN/CREATININE RATIO 14 (6-25); CALCIUM 8.7 mg/dL (8.4-10.2); CARBON DIOXIDE 23 mmol/L (22-29); CHLORIDE 107 mmol/L (98-107); CREATININE, SERUM 0.69 mg/dL (0.57-1.11); EST GLOMERULAR FILTRATION RATE > 60 ML/MIN (60-); GLUCOSE 126 mg/dL (74-118); MAGNESIUM 1.4 MG/DL (1.3-2.1); POTASSIUM 3.6 mmol/L (3.5-5.1); SODIUM 137 mmol/L (136-145)
[2017-10-09 07:42] VITALS: BP 151/73
[2017-10-09] MEDS ORDERED: MINERAL OIL 132 ML BTL PR ONE (08:15)
[2017-10-09] MEDS ORDERED: BISACODYL 5 MG TAB EC PO ONE (08:15)
[2017-10-09] MEDS: DOCUSATE SODIUM 100 MG CAP PO SCH ×2 (08:45→17:56)
[2017-10-09] MEDS: POLYETHYLENE GLYCOL 3350 17 GM PACK PO SCH ×2 (08:45→17:56)
[2017-10-09] MEDS: FAMOTIDINE 20 MG TAB PO SCH ×2 (08:45→17:56)
[2017-10-09] MEDS: LISINOPRIL 10 MG TAB PO SCH (08:45)
[2017-10-09] MEDS: SENNOSIDES 8.6 MG TAB PO SCH (08:46)
[2017-10-09] MEDS: HYDROCODONE/APAP 10MG-325MG TAB PO PRN (08:51)
[2017-10-09 11:31] VITALS: BP 180/88
[2017-10-09 15:40] VITALS: BP 164/85
[2017-10-09] MEDS: RIVAROXABAN 10 MG TABLET PO SCH (18:03)
[2017-10-09 20:00] VITALS: BP 159/94
[2017-10-09] MEDS: LORAZEPAM 0.5 MG TAB PO PRN (20:50)
[2017-10-10] VITALS (7 sets, daily range): BP systolic 123–153; BP diastolic 58–88
[2017-10-10] MEDS: METOPROLOL TARTRATE 25 MG TAB PO SCH ×5 (00:16→23:52)
[2017-10-10] MEDS: LORAZEPAM 0.5 MG TAB PO PRN ×2 (03:28→15:24)
[2017-10-10] MEDS: MORPHINE SULFATE 2 MG/ML SYR IV PRN (05:50)
[2017-10-10 06:10] LABS: BASOPHILS % 0.1 % (0.0-1.0); EOSINOPHILS % 0.3 % (0.0-6.0); HEMATOCRIT 25.2 % (34.2-44.1); HEMOGLOBIN 8.7 g/dL (12.0-16.0); LYMPHOCYTES % 18.6 % (18.0-39.1); MEAN CORPUSCULAR HEMOGLOBIN 30.9 pg (28-32); MEAN CORPUSCULAR HGB CONC 34.5 g/dL (31-35); MEAN CORPUSCULAR VOLUME 89.4 fL (81-99); MONOCYTES # (AUTO) 1.7 (0.2-0.8); MONOCYTES % 15.7 % (4.4-11.3); NEUTROPHILS # (AUTO) 6.8 (2.1-6.9); NEUTROPHILS % 64.9 % (38.7-80.0); PLATELET COUNT 222 x10e3/uL (140-360); RED BLOOD COUNT 2.82 x10e6/uL (3.6-5.1); RED CELL DISTRIBUTION WIDTH 12.1 % (11.7-14.4)
[2017-10-10 06:33] LABS: % IRON SATURATION 8 % (15-50); ANION GAP 11.7 mmol/L (8-16); BLOOD UREA NITROGEN 13 mg/dL (7-26); BUN/CREATININE RATIO 21 (6-25); CALCIUM 9.2 mg/dL (8.4-10.2); CARBON DIOXIDE 26 mmol/L (22-29); CHLORIDE 106 mmol/L (98-107); CREATININE, SERUM 0.63 mg/dL (0.57-1.11); EST GLOMERULAR FILTRATION RATE > 60 ML/MIN (60-); GLUCOSE 135 mg/dL (74-118); IRON 9 ug/dL (50-170); MAGNESIUM 1.5 MG/DL (1.3-2.1); POTASSIUM 3.7 mmol/L (3.5-5.1); SODIUM 140 mmol/L (136-145); TOTAL IRON BINDING CAPACITY 111 ug/dL (261-478); TRANSFERRIN 79 mg/dL (180-382)
[2017-10-10 06:57] LABS: FERRITIN 991.49 ng/mL (4.63-204.00)
[2017-10-10 07:20] LABS: FOLATE 12.7 ng/mL (7.0-15.4)
[2017-10-10] MEDS: FAMOTIDINE 20 MG TAB PO SCH ×2 (08:30→16:30)
[2017-10-10 08:45] LABS: ANISOCYTOSIS SLIGHT; HYPOCHROMASIA SLIGHT; LYMPHOCYTES % (MANUAL) 29 % (19-48); MONOCYTES % (MANUAL) 16 % (3.4-9.0); NEUTROPHILS % (MANUAL) 55 % (40-74); POIKILOCYTOSIS SLIGHT; RBC MORPHOLOGY COMMENT NORMAL
[2017-10-10 08:46] LABS: PLATELET ESTIMATE ADEQUATE; PLATELET MORPHOLOGY COMMENT NORMAL
[2017-10-10] MEDS: SENNOSIDES 8.6 MG TAB PO SCH (09:00)
[2017-10-10] MEDS: FERROUS SULFATE 325 MG TAB PO SCH ×2 (09:00→17:00)
[2017-10-10] MEDS: LISINOPRIL 10 MG TAB PO SCH (09:00)
[2017-10-10] MEDS: DOCUSATE SODIUM 100 MG CAP PO SCH ×2 (09:00→17:00)
[2017-10-10] MEDS: POLYETHYLENE GLYCOL 3350 17 GM PACK PO SCH ×2 (09:00→17:00)
[2017-10-10] MEDS: ASCORBIC ACID 500 MG TAB PO SCH ×2 (10:20→17:00)
[2017-10-10] MEDS: HYDROCODONE/APAP 5MG-325MG TAB PO PRN ×2 (13:53→23:52)
[2017-10-10] MEDS: RIVAROXABAN 10 MG TABLET PO SCH (17:00)
[2017-10-11 03:44] LABS: BASOPHILS % 0.2 % (0.0-1.0); EOSINOPHILS # (AUTO) 0.3 (0.0-0.4); EOSINOPHILS % 3.5 % (0.0-6.0); HEMATOCRIT 23.1 % (34.2-44.1); HEMOGLOBIN 7.9 g/dL (12.0-16.0); LYMPHOCYTES # (AUTO) 2.6 (1.0-3.2); LYMPHOCYTES % 28.4 % (18.0-39.1); MEAN CORPUSCULAR HEMOGLOBIN 30.9 pg (28-32); MEAN CORPUSCULAR HGB CONC 34.2 g/dL (31-35); MEAN CORPUSCULAR VOLUME 90.2 fL (81-99); MONOCYTES # (AUTO) 1.1 (0.2-0.8); MONOCYTES % 11.4 % (4.4-11.3); NEUTROPHILS # (AUTO) 5.2 (2.1-6.9); NEUTROPHILS % 56.2 % (38.7-80.0); PLATELET COUNT 242 x10e3/uL (140-360); RED BLOOD COUNT 2.56 x10e6/uL (3.6-5.1); RED CELL DISTRIBUTION WIDTH 12.2 % (11.7-14.4)
[2017-10-11 04:19] LABS: ANION GAP 10.1 mmol/L (8-16); BLOOD UREA NITROGEN 11 mg/dL (7-26); BUN/CREATININE RATIO 18 (6-25); CALCIUM 8.6 mg/dL (8.4-10.2); CARBON DIOXIDE 26 mmol/L (22-29); CHLORIDE 108 mmol/L (98-107); EST GLOMERULAR FILTRATION RATE > 60 ML/MIN (60-); GLUCOSE 99 mg/dL (74-118); MAGNESIUM 1.6 MG/DL (1.3-2.1); POTASSIUM 4.1 mmol/L (3.5-5.1); SODIUM 140 mmol/L (136-145)
[2017-10-11 04:53] VITALS: BP 120/86
[2017-10-11] MEDS: LORAZEPAM 0.5 MG TAB PO PRN ×3 (05:14→21:20)
[2017-10-11] MEDS: METOPROLOL TARTRATE 25 MG TAB PO SCH ×3 (05:53→17:45)
[2017-10-11] MEDS: HYDROCODONE/APAP 5MG-325MG TAB PO PRN ×4 (05:54→19:50)
[2017-10-11] MEDS ORDERED: SODIUM CHLORIDE 0.9% 250ML 250 ML IV ONE (07:30)
[2017-10-11 07:57] VITALS: BP 138/73
[2017-10-11] MEDS: POLYETHYLENE GLYCOL 3350 17 GM PACK PO SCH ×2 (09:55→17:00)
[2017-10-11] MEDS: SENNOSIDES 8.6 MG TAB PO SCH (09:55)
[2017-10-11] MEDS: LISINOPRIL 10 MG TAB PO SCH (09:55)
[2017-10-11] MEDS: FERROUS SULFATE 325 MG TAB PO SCH ×2 (09:55→17:44)
[2017-10-11] MEDS: FAMOTIDINE 20 MG TAB PO SCH ×2 (09:55→17:44)
[2017-10-11] MEDS: ASCORBIC ACID 500 MG TAB PO SCH ×2 (09:55→17:44)
[2017-10-11] MEDS: DOCUSATE SODIUM 100 MG CAP PO SCH ×2 (09:55→17:44)
[2017-10-11] MEDS ORDERED: SODIUM CHLORIDE 0.9% 250ML 500 ML ONE (10:09)
[2017-10-11 12:28] VITALS: BP 124/70
[2017-10-11] MEDS: FUROSEMIDE INJ 10 MG/ML 2 ML VIAL IV SCH ×2 (13:51→20:01)
[2017-10-11 15:55] VITALS: BP 145/89
[2017-10-11] MEDS: RIVAROXABAN 10 MG TABLET PO SCH (17:44)
[2017-10-11 20:00] VITALS: BP 144/71
[2017-10-12] VITALS: BP 154/88
[2017-10-12] MEDS: METOPROLOL TARTRATE 25 MG TAB PO SCH ×2 (01:26→06:34)
[2017-10-12] MEDS: HYDROCODONE/APAP 5MG-325MG TAB PO PRN ×2 (01:31→06:35)
[2017-10-12] MEDS: LORAZEPAM 0.5 MG TAB PO PRN ×2 (03:20→09:25)
[2017-10-12 03:36] LABS: BASOPHILS % 0.3 % (0.0-1.0); EOSINOPHILS # (AUTO) 0.2 (0.0-0.4); EOSINOPHILS % 2.1 % (0.0-6.0); HEMATOCRIT 33.2 % (34.2-44.1); HEMOGLOBIN 11.6 g/dL (12.0-16.0); LYMPHOCYTES # (AUTO) 2.4 (1.0-3.2); LYMPHOCYTES % 24.8 % (18.0-39.1); MEAN CORPUSCULAR HEMOGLOBIN 29.9 pg (28-32); MEAN CORPUSCULAR HGB CONC 34.9 g/dL (31-35); MEAN CORPUSCULAR VOLUME 85.6 fL (81-99); MONOCYTES # (AUTO) 1.4 (0.2-0.8); MONOCYTES % 14.3 % (4.4-11.3); NEUTROPHILS # (AUTO) 5.5 (2.1-6.9); NEUTROPHILS % 58.2 % (38.7-80.0); PLATELET COUNT 334 x10e3/uL (140-360); RED BLOOD COUNT 3.88 x10e6/uL (3.6-5.1); RED CELL DISTRIBUTION WIDTH 15.3 % (11.7-14.4)
[2017-10-12 04:00] VITALS: BP 146/90
[2017-10-12 04:02] LABS: ANION GAP 13.9 mmol/L (8-16); BLOOD UREA NITROGEN 17 mg/dL (7-26); BUN/CREATININE RATIO 26 (6-25); CALCIUM 9.5 mg/dL (8.4-10.2); CARBON DIOXIDE 29 mmol/L (22-29); CHLORIDE 102 mmol/L (98-107); CREATININE, SERUM 0.66 mg/dL (0.57-1.11); EST GLOMERULAR FILTRATION RATE > 60 ML/MIN (60-); GLUCOSE 114 mg/dL (74-118); MAGNESIUM 1.5 MG/DL (1.3-2.1); POTASSIUM 3.9 mmol/L (3.5-5.1); SODIUM 141 mmol/L (136-145)
[2017-10-12 07:56] VITALS: BP 151/88
[2017-10-12] MEDS ORDERED: COLACE100 M1 PO (08:16)
[2017-10-12] MEDS ORDERED: MIRALAX17 GM PO (08:16)
[2017-10-12] MEDS ORDERED: Hydrocodone/Apap 5MG-325MG PO (08:16)
[2017-10-12] MEDS ORDERED: SENOKOT8.6 MG PO (08:16)
[2017-10-12] MEDS ORDERED: FERROUS SULFAT325 MG PO (08:16)
[2017-10-12] MEDS ORDERED: XARELTO10 MG PO (08:16)
[2017-10-12] MEDS ORDERED: LOPRESSOR25 MG PO (08:16)
[2017-10-12] MEDS ORDERED: ASCORBIC ACID500 MG PO (08:16)
[2017-10-12] MEDS: SENNOSIDES 8.6 MG TAB PO SCH (09:49)
[2017-10-12] MEDS: DOCUSATE SODIUM 100 MG CAP PO SCH (09:49)
[2017-10-12] MEDS: POLYETHYLENE GLYCOL 3350 17 GM PACK PO SCH (09:49)
[2017-10-12] MEDS: ASCORBIC ACID 500 MG TAB PO SCH (09:49)
[2017-10-12] MEDS: LISINOPRIL 10 MG TAB PO SCH (09:49)
[2017-10-12] MEDS: FERROUS SULFATE 325 MG TAB PO SCH (09:49)
[2017-10-12] MEDS: FAMOTIDINE 20 MG TAB PO SCH (09:49)
--- NOTE | 2017-10-12 19:56 | Discharge Summary ---
ADMITTING DIAGNOSES 1. Displaced fracture of left femoral neck. 2. Hypertension. 3. Anxiety. 4. Dementia. 5. Hyponatremia. 6. Irritable bowel syndrome. 7. Tachycardia. DISCHARGE DIAGNOSES 1. Displaced fracture of left femoral neck. 2. Hypertension. 3. Anxiety. 4. Dementia. 5. Hyponatremia. 6. Irritable bowel syndrome. 7. Tachycardia. 8. Ruled out hyperthyroidism. 9. Ruled out gastrointestinal bleed. 10. Anemia. HISTORY: The patient has a history of hypertension, anxiety, IBS, dementia, hyperlipidemia, CVA. HOSPITAL COURSE: This 76-year-old female, with a history of dementia, fell in the care home on 10/03/2017. Prior to the fall, the patient was ambulatory and independent. Daughter is not sure if she wants surgery but wants to discuss options with ortho. She also wants to talk to case management about going home with hospice. She was on hospice at the care home but had it revoked to come to the ER after the fall. Upon admission, the patient's daughter, power of instructor psychiatric aide, was leaning towards hospice care as she was not sure she wanted to put her mom through surgery. After speaking with ortho, the daughter changed her mind and decided that she wanted to go ahead and have the fracture repaired. The patient then needed a cardiac workup due to tachycardia and cardiac clearance for surgery. An echo showed an EF of 50% to 55% with trace tricuspid regurg and mitral regurg. EKG was normal sinus. CT of the left hip showed acute transverse, minimally displaced fracture of the left femoral neck and generalized osteopenia. CT of the brain showed no acute abnormality, moderate generalized volume loss. Chest x-ray showed no acute abnormality. Dr. Wu was consulted for cardiac clearance. Due to her tachycardia, the patient was started on metoprolol p.o., which controlled the tachycardia. Then a TSH was drawn, which was really low. Endo was consulted for workup of hyperthyroidism. According to endo, the patient does not have hyperthyroidism, so no changes were made. The patient was left on metoprolol p.o. and cleared for surgery. The patient had the operation on October 06. She underwent a left cemented hemiarthroplasty and open reduction and internal fixation of the left greater trochanteric fracture. The patient tolerated it well. Every day, her hemoglobin dropped a little. Eventually, the patient required a transfusion, so she got 2 units of blood. Her stool came back negative for blood. Vital signs were stable. The patient was afebrile. Urine culture was negative. The patient was eating well with daughter at bedside. The pain is controlled on . The patient was discharged to [facility] for long-term physical therapy prior to going back on hospice with daughter. The daughter wants to take the patient home eventually with hospice once she gets a little more independent. The patient will discharge today to [facility]. The patient and daughter agree with discharge. Dictated by: Qi Ledbetter NP NIDIA MORGAN MD Job#: [id number]
== END 2017-10-12 12:15 | DRG 469 ==
LOC: ER 12:54 → ERHOLD 19:31 → MED/SURG2 20:41 → OBSVTOIN 10-06 08:32 → MED/SURG 10-08 10:34
PROVIDERS: ADMIT Internal Medicine; ATTEND Internal Medicine
PROC: 0QS704Z Reposition Left Upper Femur with Internal Fixation Device, Open Approach (ICD-10-PCS; 2017-10-08)
PROC: 0SRS0J9 Replacement of Left Hip Joint, Femoral Surface with Synthetic Substitute, Cemented, Open Approach (ICD-10-PCS; principal; 2017-10-08 07:30)
PROC: 30233N1 Transfusion of Nonautologous Red Blood Cells into Peripheral Vein, Percutaneous Approach (ICD-10-PCS; 2017-10-11)
DX: S72.092A Other fracture of head and neck of left femur, initial encounter for closed fracture (principal); E43 Unspecified severe protein-calorie malnutrition; E87.1 Hypo-osmolality and hyponatremia; R64 Cachexia; Z68.1 Body mass index [BMI] 19.9 or less, adult; S72.112A Displaced fracture of greater trochanter of left femur, initial encounter for closed fracture; W19.XXXA Unspecified fall, initial encounter; Y92.129 Unspecified place in nursing home as the place of occurrence of the external cause; F03.90 Unspecified dementia, unspecified severity, without behavioral disturbance, psychotic disturbance, mood disturbance, and anxiety; K58.9 Irritable bowel syndrome, unspecified; I10 Essential (primary) hypertension; Z86.73 Personal history of transient ischemic attack (TIA), and cerebral infarction without residual deficits; M85.80 Other specified disorders of bone density and structure, unspecified site; E78.5 Hyperlipidemia, unspecified; F41.9 Anxiety disorder, unspecified; R00.0 Tachycardia, unspecified; D64.9 Anemia, unspecified; I08.1 Rheumatic disorders of both mitral and tricuspid valves
CPT/HCPCS: 36415; 36430; 51700; 70450; 71045; 72170; 80048; 81001; 82270; 82607; 82728; 82746; 83036; 83540; 83735; 83880; 84436; 84439; 84443; 84466; 84479; 84481; 85025; 85610; 86376; 86850; 86900; 86920; 87086; 88305; 88311; 93005; 93306; 96361; 97139; 99284; C1713; C1776; G0378; J0360; J0690; J0696; J1100; J1940; J2250; J2270; J2405; J7030; J7050; P9016